=== PATIENT | female | born 1990 ===

== ENCOUNTER 2020-06-08 10:11 | Outpatient (REF) | payer SELFPAY ==
[2020-06-11 08:28] LABS: SARS-CoV-2 RNA Undetected (Undetected); SARS-CoV-2 Specimen Source Nasopharynx
== END 2020-06-08 10:31 ==
LOC: NCHCN 10:11
PROVIDERS: Visit Provider Family Medicine
DX: Z20.828 Contact with and (suspected) exposure to other viral communicable diseases (principal)
CPT/HCPCS: U0003